=== PATIENT | female | born 1985 | race Two or more races ===

== ENCOUNTER 2018-04-13 10:54 | Outpatient (CLI) | payer OTHER | END 2018-04-13 11:09 | disposition home or self-care (01) | LOC: RX STUDY 10:54 | DX: R10.2 Pelvic and perineal pain (principal); N91.0 Primary amenorrhea ==

== ENCOUNTER 2019-06-08 16:38 | Inpatient (IN) | payer OTHER ==
[~2019-06-08] VITALS: Ht 165.1 cm; Wt 79.4 kg
[2019-06-09] MEDS ORDERED: PRENATAL + DHA1 EAC1 PO (03:46)
[2019-06-10] MEDS ORDERED: NIFEDIPINE ER30 MG PO (17:05)
[2019-06-10] MEDS ORDERED: HYDROXYZINE PAM50 MG PO (17:05)
== END 2019-06-10 18:48 | disposition home or self-care (01) | DRG 833 ==
LOC: LDR 16:38 → OB/GYN 16:38
PROVIDERS: ADMIT Obstetrics & Gynecology
PROC: BY4FZZZ Ultrasonography of Third Trimester, Single Fetus (ICD-10-PCS; principal; 2019-06-08)
DX: O60.03 Preterm labor without delivery, third trimester (principal); Z3A.34 34 weeks gestation of pregnancy